=== PATIENT | male | born 1950 | race Caucasian/White ===

== ENCOUNTER 2024-04-13 12:40 | Observation (INO) | payer MEDICARE, SELFPAY ==
[2024-04-13] VITALS (20 sets, daily range): BP systolic 90–157; BP diastolic 50–85; PULSE 70–115; RESP 12–26; TEMP 36.2–37.7; O2SAT 93–99; BMI 20.7
[2024-04-13] MEDS: ONDANSETRON 4 MG/2 ML INJ IV ×2 (13:15→18:53)
--- NOTE | 2024-04-13 13:15 | DI.CT.S_ITS ---
PROCEDURE: CT ABDOMEN PELVIS W CON INDICATIONS: abd pain,vomiting,possible incarterated hernia TECHNIQUE: After the administration of intravenous contrast, axial sections acquired from the lung bases to the pubic symphysis. Coronal and sagittal reformats were performed. For radiation dose reduction, the following was used: automated exposure control, adjustment of mA and/or kV according to patient size. COMPARISON: None. FINDINGS: Image quality: Diagnostic. Lower Chest: Minimal pericardial effusion. ABDOMEN: Liver: Prominent calcification in the posterior right hepatic lobe. Pattern attenuation is present. There is mild appearance of increased attenuation within the region of the falciform ligament possibly related to focal fat sparing. No priors. Gallbladder: No radiopaque gallstones or wall thickening. Biliary ducts: No biliary dilation. Pancreas: No ductal dilation. Spleen: Size is within normal limits. Adrenal Glands: No adrenal nodules. Kidneys and Ureters: No hydronephrosis. No solid mass. No complex renal cystic lesion which requires follow up. Stomach and Bowel: There are dilated fluid-filled loops of small bowel. Transition point appears to be within the left inguinal canal with marked narrowing and proximal obstruction. This is best seen on series 2, image 65. Greatest transverse dimension of fluid-filled bowel loop measures approximately 3.3 cm. Scattered diverticulosis is present without inflammatory change. Peritoneum: No abnormal intraperitoneal fluid. No free air. Ventral Wall: No significant ventral hernia. Abdominal Nodes: No retroperitoneal or mesenteric adenopathy by size criteria. Vessels: Aorta and inferior vena cava are normal in size. PELVIS: Pelvic Organs: Unremarkable. Bladder: No bladder wall thickening, accounting for underdistention. Pelvic Nodes: No enlarged lymph nodes. Miscellaneous: No inguinal hernias are seen. Bones: No aggressive osseous abnormality. IMPRESSION: Partial small bowel obstruction with transition point appearing to be in the left inguinal canal. Hepatic steatosis. Mild appearance of increased density is present anteriorly within the liver suspected to be related to fat sparing. Dictated by: Sara Solorzano M.D. on 04/13/2024 at 14:45 Approved by: Sara Solorzano M.D. on 04/13/2024 at 14:48
[2024-04-13 13:27] LABS: Add Manual Diff / Slide Review NO; Basophils Absolute Auto 100 /uL (0-100); Basophils Percent Auto 0.9 % (0-2); Eosinophils Absolute Auto 0 /uL (0-450); Eosinophils Percent Auto 0.1 % (2-4); Hematocrit 50.8 % (41-53); Hemoglobin 17.5 g/dL (13.5-17.5); Lymphocytes Absolute Auto 2300 /uL (1100-4500); Lymphocytes Percent Auto 14.7 % (25-40); Mean Corpuscular HGB Conc 34.4 % (30-36); Mean Corpuscular Hemoglobin 32.6 PG (26-34); Mean Corpuscular Volume 94.9 fL (80-100); Monocytes Absolute Auto 1300 /uL (0-900); Monocytes Percent Auto 8.5 % (3-14); Neutrophils Absolute Auto 12000 /uL (1500-7000); Neutrophils Percent Auto 75.8 % (50-75); Platelet Count 467 X10^3/uL (150-400); Red Blood Cell Count 5.36 X10^6/uL (4.5-5.9); Red Cell Distribution Width 13.7 % (11.6-14.8); White Blood Cell Count 15.8 X10^3/uL (4.5-11.0)
[2024-04-13 13:29] LABS: Alanine Aminotransferase 17 IU/L (<50); Albumin 4.8 g/dL (3.5-5.0); Albumin Globulin Ratio 1.3 (1.0-2.8); Alkaline Phosphatase 78 U/L (38-126); Aspartate Aminotransferase 27 IU/L (17-59); BUN Creatinine Ratio 31.7 (6-22); Bilirubin Total 0.8 mg/dL (0.2-1.3); Blood Urea Nitrogen 40 mg/dL (9-20); Carbon Dioxide 31 mmol/L (22-32); Chloride 97 mmol/L (98-107); Estimated Glomerular Filt Rate > 60 mL/min (>60); Globulin 3.6 g/dL (1.7-4.1); Glucose 141 mg/dL (80-110); HEMOLYSIS < 15 (0-50); Lipase 105 U/L (23-300); Potassium 5.1 mmol/L (3.4-5.1); Sodium 134 mmol/L (137-145); Total Protein 8.4 g/dL (6.3-8.2)
--- NOTE | 2024-04-13 15:00 | ED.GENADULT ---
HPI - General Adult General Chief complaint: Urogenital-Male Stated complaint: abd pain, knot in side Time Seen by Provider: 04/13/24 13:51 Source: patient Mode of arrival: Wheelchair History of Present Illness HPI narrative: 73-year-old male who is here for evaluation of left lower abdominal discomfort and a lump in this area. He states that a couple days ago he was carrying a heavy object when he noticed the lump present. Has been worsening and becoming more painful since then. Initially had some vomiting but has not having any nausea now. He has not had a bowel movement in several days. He is still passing flatus. No problems urinating. He has never had a hernia in the past. No prior abdominal surgeries. Has not tried anything for the symptoms prior to arrival. Related Data Allergies Allergy/AdvReac Type Severity Reaction Status Date / Time ibuprofen AdvReac Swelling Verified 04/13/24 13:02 of the Eye Review of Systems Constitutional Constitutional: Reports system reviewed and no additional complaints, except as documented Gastrointestinal Gastrointestinal: Reports system reviewed and no additional complaints, except as documented Genitourinary Genitourinary: Reports system reviewed and no additional complaints, except as documented Integumentary/Breasts Skin/Breast: Reports system reviewed and no additional complaints, except as documented Patient History Social History Smoking Status: Current every day smoker Smoking Status: Current every day smoker alcohol intake frequency: 3 or more drinks per day Substance Use Type: marijuana Exam Initial Vital Signs Initial Vital Signs: Vital Signs Temperature 97.2 F L 04/13/24 12:53 Pulse Rate 115 H 04/13/24 12:53 Respiratory Rate 26 H 04/13/24 12:53 Blood Pressure 98/65 04/13/24 12:53 Pulse Oximetry 97 04/13/24 12:53 Oxygen Delivery Method Room Air 04/13/24 12:53 HENMT Head: normal to inspection and normocephalic Resp Effort & Inspection: normal respiratory effort Auscultation: clear to auscultation bilaterally Cardio Rate: regular rate Rhythm: regular rhythm GI Other: Patient has an obvious left-sided inguinal hernia. Testes: normal Skin General: no rashes or lesions noted Neuro General: patient alert, patient awake and moves all extremities Course Orders Ordered: ED Orders 04/13/24 13:10 Complete Blood Count AUTO DIFF Stat Comprehensive Metabolic Panel Stat Lipase Stat 04/13/24 13:15 CT abdomen pelvis w con Stat 04/13/24 16:12 Urine Microscopic Stat Sodium Chloride (Normal Saline 0.9%) 1,000 mls @ 125 mls/hr IV CONT GEORGES Last Admin: 04/13/24 17:40 Dose: 125 mls/hr Documented By: DANDRE Ondansetron HCl (Ondansetron 4 Mg/2 Ml Inj) 4 mg IV NOW PRN PRN Reason: Nausea And Vomiting Last Admin: 04/13/24 13:15 Dose: 4 mg Documented By: VAN Ondansetron HCl (Ondansetron 4 Mg Odt) 4 mg PO NOW PRN PRN Reason: Nausea And Vomiting Discontinued Medications Morphine Sulfate (Morphine 4 Mg/Ml Inj) 4 mg IV NOW ONE Stop: 04/13/24 15:01 Last Admin: 04/13/24 15:13 Dose: 4 mg Documented By: DANDRE Morphine Sulfate (Morphine 4 Mg/Ml Inj) 4 mg IV NOW ONE Stop: 04/13/24 17:46 Last Admin: 04/13/24 17:51 Dose: 4 mg Documented By: DELL Vital Signs Vital signs: Vital Signs - 8 hr 04/13/24 12:53 04/13/24 13:45 04/13/24 14:06 Temperature 97.2 F L Pulse Rate 115 H Respiratory Rate 26 H Blood Pressure 98/65 128/71 149/67 H Pulse Oximetry 97 Oxygen Delivery Method Room Air 04/13/24 14:06 04/13/24 14:30 04/13/24 14:30 Temperature Pulse Rate 70 95 H Respiratory Rate Blood Pressure 153/85 H Pulse Oximetry 97 Oxygen Delivery Method 04/13/24 15:00 04/13/24 15:00 04/13/24 15:30 Temperature Pulse Rate 96 H 90 Respiratory Rate Blood Pressure 137/74 Pulse Oximetry 99 96 Oxygen Delivery Method 04/13/24 15:30 04/13/24 16:00 04/13/24 16:00 Temperature Pulse Rate 80 Respiratory Rate Blood Pressure 157/71 H 140/76 Pulse Oximetry 99 Oxygen Delivery Method 04/13/24 16:30 04/13/24 16:30 04/13/24 17:00 Temperature Pulse Rate 100 H 104 H Respiratory Rate Blood Pressure 147/75 H Pulse Oximetry 95 97 Oxygen Delivery Method Room Air 04/13/24 17:02 04/13/24 17:02 Temperature Pulse Rate 101 H Respiratory Rate Blood Pressure 100/68 Pulse Oximetry 96 Oxygen Delivery Method Medical Decision Making Lab Data Lab results reviewed: Yes I reviewed the patient's lab results. 04/13/24 13:10 04/13/24 13:10 Labs: Lab Results 04/13/24 04/13/24 Range/Units 13:10 16:12 WBC 15.8 H (4.5-11.0) X10^3/uL RBC 5.36 (4.5-5.9) X10^6/uL Hgb 17.5 (13.5-17.5) g/dL Hct 50.8 (41-53) % MCV 94.9 (80-100) fL MCH 32.6 (26-34) PG MCHC 34.4 (30-36) % RDW 13.7 (11.6-14.8) % Plt Count 467 H (150-400) X10^3/uL Neut % (Auto) 75.8 H (50-75) % Lymph % (Auto) 14.7 L (25-40) % [place] % (Auto) 8.5 (3-14) % Eos % (Auto) 0.1 L (2-4) % Baso % (Auto) 0.9 (0-2) % Neut # (Auto) 38365 H (7619-1927) /uL Lymph # (Auto) 2300 (4370-1859) /uL [place] # (Auto) 1300 H (0-900) /uL Eos # (Auto) 0 (0-450) /uL Baso # (Auto) 100 (0-100) /uL Sodium 134 L (137-145) mmol/L Potassium 5.1 (3.4-5.1) mmol/L Chloride 97 L (98-107) mmol/L Carbon Dioxide 31 (22-32) mmol/L BUN 40 H (9-20) mg/dL Creatinine 1.26 H (0.66-1.25) mg/dL Estimated GFR > 60 (>60) mL/min BUN/Creatinine Ratio 31.7 H (6-22) Glucose 141 H (80-110) mg/dL Calcium 10.0 (8.4-10.2) mg/dL Total Bilirubin 0.8 (0.2-1.3) mg/dL AST 27 (17-59) IU/L ALT 17 (<50) IU/L Alkaline Phosphatase 78 (38-126) U/L Total Protein 8.4 H (6.3-8.2) g/dL Albumin 4.8 (3.5-5.0) g/dL Globulin 3.6 (1.7-4.1) g/dL Albumin/Globulin Ratio 1.3 (1.0-2.8) Lipase 105 (23-300) U/L Urine RBC 1-5/hpf (0-5/HPF) Urine WBC 1-5/hpf (0-5/HPF) Ur Squamous Epith Cells 0-1 /hpf (0-5/HPF) Urine Bacteria Occasional (0-1) (None) Hyaline Casts 1-5/lpf (None) Granular Casts 0-1/lpf (None) Ur Culture Indicated? Cult not indicated Vol Urine Centrifuged 10ml (spun) Urine Dip Bedside Urine Glucose Negative Bedside Urine Bilirubin - Negative Bedside Urine Ketone - Negative Urine Specific [place] 1.010 Bedside Urine Occult Blood +/- Bedside Urine pH 5.5 Bedside Urine Protein +/- 15 Bedside Urine Urobilinogen - Negative Bedside Urine Nitrite - Negative Bedside Urine Leukocytes - Negative Esterase Point of care testing: Urine Dip Bedside Urine Glucose Negative Bedside Urine Bilirubin - Negative Bedside Urine Ketone - Negative Urine Specific [place] 1.010 Bedside Urine Occult Blood +/- Bedside Urine pH 5.5 Bedside Urine Protein +/- 15 Bedside Urine Urobilinogen - Negative Bedside Urine Nitrite - Negative Bedside Urine Leukocytes - Negative Esterase Imaging Data CT scan - abdomen/pelvis: Radiologist's Impression: PROCEDURE: CT ABDOMEN PELVIS W CON INDICATIONS: abd pain,vomiting,possible incarterated hernia TECHNIQUE: After the administration of intravenous contrast, axial sections acquired from the lung bases to the pubic symphysis. Coronal and sagittal reformats were performed. For radiation dose reduction, the following was used: automated exposure control, adjustment of mA and/or kV according to patient size. COMPARISON: None. FINDINGS: Image quality: Diagnostic. Lower Chest: Minimal pericardial effusion. ABDOMEN: Liver: Prominent calcification in the posterior right hepatic lobe. Pattern attenuation is present. There is mild appearance of increased attenuation within the region of the falciform ligament possibly related to focal fat sparing. No priors. Gallbladder: No radiopaque gallstones or wall thickening. Biliary ducts: No biliary dilation. Pancreas: No ductal dilation. Spleen: Size is within normal limits. Adrenal Glands: No adrenal nodules. Kidneys and Ureters: No hydronephrosis. No solid mass. No complex renal cystic lesion which requires follow up. Stomach and Bowel: There are dilated fluid-filled loops of small bowel. Transition point appears to be within the left inguinal canal with marked narrowing and proximal obstruction. This is best seen on series 2, image 65. Greatest transverse dimension of fluid-filled bowel loop measures approximately 3.3 cm. Scattered diverticulosis is present without inflammatory change. Peritoneum: No abnormal intraperitoneal fluid. No free air. Ventral Wall: No significant ventral hernia. Abdominal Nodes: No retroperitoneal or mesenteric adenopathy by size criteria. Vessels: Aorta and inferior vena cava are normal in size. PELVIS: Pelvic Organs: Unremarkable. Bladder: No bladder wall thickening, accounting for underdistention. Pelvic Nodes: No enlarged lymph nodes. Miscellaneous: No inguinal hernias are seen. Bones: No aggressive osseous abnormality. IMPRESSION: Partial small bowel obstruction with transition point appearing to be in the left inguinal canal. Hepatic steatosis. Mild appearance of increased density is present anteriorly within the liver suspected to be related to fat sparing. MDM Narrative Medical decision making narrative: Attempted to reduce the inguinal hernia. After pain medication the patient did tolerate it fairly well. He was able to reduce the approximately 50% of the hernia but I was not able to reduce it all the way. He did have some relief of his discomfort. I did discuss the case with Dr. Lynch on-call with General surgery. Plan will be is to admit the patient to surgery for intervention. Discuss this with the patient. He expressed understanding and agreement. Discharge Plan Departure Patient Disposition: Admitted to Surgery Clinical Impression: Incarcerated inguinal hernia Admit Date/Time: 04/13/24 17:28 Admit Provider: Angela Lynch
[2024-04-13] MEDS: MORPHINE 4 MG/ML INJ IV ×2 (15:13→17:51)
[2024-04-13 16:45] LABS: Bacteria Urine Occasional (0-1); Granular Casts Urine 0-1/LPF; Hyaline Casts Urine 1-5/LPF; RBC Urine 1-5/HPF (0-5/HPF); Squamous Epithelial Cell Urine 0-1 /HPF (0-5/HPF); Urine Volume 10mL (spun); WBC Urine 1-5/HPF (0-5/HPF)
[2024-04-13 16:46] LABS: Culture Indicated Urine Cult Not Indicated
[2024-04-13] MEDS: SODIUM CHLORIDE 0.9% 1,000 ML 125 ML IV (17:40)
--- NOTE | 2024-04-13 20:33 | P.HP_ITS ---
History of Present Illness History of Present Illness Date Patient Seen: 04/13/24 Time Patient Seen: 20:33 Chief complaint: abd pain, knot in side Narrative: incarcerated, obstructing left inquinal hernia. Occurred after carrying heavy rocks a couple days ago. Progressive focal tenderness. Pain is sharp and worse when palpated. Only able to partially reduce in ED. [facility] Social History household members: friend(s) Smoking Status: Current every day smoker alcohol intake: current Meds Home Medications and Allergies Home Medications Medication Instructions Recorded Confirmed Type No Known Home Medications 04/13/24 04/13/24 History Allergies Allergy/AdvReac Type Severity Reaction Status Date / Time ibuprofen AdvReac Swelling Verified 04/13/24 13:02 of the Eye Review of Systems Review of Systems ROS: Yes All systems reviewed with the patient and are negative except as otherwise documented Exam Vital Signs (past 8 hours): - 04/13/24 12:53 04/13/24 13:45 04/13/24 14:06 Temperature 97.2 F L Pulse Rate 115 H Respiratory Rate 26 H Blood Pressure 98/65 128/71 149/67 H Pulse Oximetry 97 Oxygen Delivery Method Room Air 04/13/24 14:06 04/13/24 14:30 04/13/24 14:30 Temperature Pulse Rate 70 95 H Respiratory Rate Blood Pressure 153/85 H Pulse Oximetry 97 Oxygen Delivery Method 04/13/24 15:00 04/13/24 15:00 04/13/24 15:30 Temperature Pulse Rate 96 H 90 Respiratory Rate Blood Pressure 137/74 Pulse Oximetry 99 96 Oxygen Delivery Method 04/13/24 15:30 04/13/24 16:00 04/13/24 16:00 Temperature Pulse Rate 80 Respiratory Rate Blood Pressure 157/71 H 140/76 Pulse Oximetry 99 Oxygen Delivery Method 04/13/24 16:30 04/13/24 16:30 04/13/24 17:00 Temperature Pulse Rate 100 H 104 H Respiratory Rate Blood Pressure 147/75 H Pulse Oximetry 95 97 Oxygen Delivery Method Room Air 04/13/24 17:02 04/13/24 17:02 04/13/24 17:30 Temperature Pulse Rate 101 H Respiratory Rate Blood Pressure 100/68 90/50 L Pulse Oximetry 96 Oxygen Delivery Method 04/13/24 17:30 04/13/24 17:37 04/13/24 17:37 Temperature Pulse Rate 84 98 H Respiratory Rate Blood Pressure 97/54 L Pulse Oximetry 98 96 Oxygen Delivery Method 04/13/24 18:05 04/13/24 18:45 Temperature 98.3 F Pulse Rate 82 Respiratory Rate 16 Blood Pressure 90/50 L Pulse Oximetry 96 Oxygen Delivery Method Room Air Oxygen Delivery Method Room Air Const General: cooperative Nutritional Appearance: thin Orientation: alert, awake and oriented x3 [facility] Head: normocephalic and atraumatic Eyes General: appearance normal, both eyes and all related structures Sclera: sclerae normal Neck Neck: trachea midline Resp Effort & Inspection: normal respiratory effort and able to speak in complete sentences Cardio Rate: regular rate Rhythm: regular rhythm GI Inspection: normal to inspection Palpation: soft Other: bilateral inguinal hernias with the left one tender and not completely reduciable. Skin General: atrophy Hair: general thinning Neuro General: patient alert, patient awake and patient oriented x3 Cognition: normal cognition Psych Mental Status: mental status grossly normal Affect: normal affect Judgment: judgment good Objective Labs 04/13/24 13:10 04/13/24 13:10 Labs: Laboratory Results - last 24 hr 04/13/24 04/13/24 13:10 16:12 WBC 15.8 H RBC 5.36 Hgb 17.5 Hct 50.8 MCV 94.9 MCH 32.6 MCHC 34.4 RDW 13.7 Plt Count 467 H Neut % (Auto) 75.8 H Lymph % (Auto) 14.7 L [place] % (Auto) 8.5 Eos % (Auto) 0.1 L Baso % (Auto) 0.9 Neut # (Auto) 41293 H Lymph # (Auto) 2300 [place] # (Auto) 1300 H Eos # (Auto) 0 Baso # (Auto) 100 Sodium 134 L Potassium 5.1 Chloride 97 L Carbon Dioxide 31 BUN 40 H Creatinine 1.26 H Estimated GFR > 60 BUN/Creatinine Ratio 31.7 H Glucose 141 H Calcium 10.0 Total Bilirubin 0.8 AST 27 ALT 17 Alkaline Phosphatase 78 Total Protein 8.4 H Albumin 4.8 Globulin 3.6 Albumin/Globulin Ratio 1.3 Lipase 105 Urine RBC 1-5/hpf Urine WBC 1-5/hpf Ur Squamous Epith Cells 0-1 /hpf Urine Bacteria Occasional (0-1) Hyaline Casts 1-5/lpf Granular Casts 0-1/lpf Ur Culture Indicated? Cult not indicated Vol Urine Centrifuged 10ml (spun) Assessment & Plan Assessment & Plan narrative: incarcerated, obstructing inquinal hernia on the left. reducible hernia on the right. Plan: Urgent repair of LIH with mesh COVID-19 COVID-19 status: Negative Time Spent With Patient Time with patient: less than 30 minutes Quality VTE Deep Vein Thrombosis/Pulmonary Embolism Present on Admission: No
[2024-04-13] MEDS: CEFAZOLIN 2 GM/100 ML PREMIX 100 ML IV (21:10)
--- NOTE | 2024-04-13 21:20 | SUR.OPER ---
Supine on padded OR bed, head on pillow, arms secured on padded arm boards at <90 degrees abduction, legs uncrossed, safety belt at thigh, tape over blanket over lower legs.
[2024-04-13] MEDS: BUPIVACAINE 0.25% (PF) 30 ML, EPINEPHrine 0.15 MG INJ (21:27)
--- NOTE | 2024-04-13 22:09 | P.OP_ITS ---
Operative Date/Time/Diagnoses Date of procedure: 04/13/24 Time of procedure: 22:09 Pre-op diagnosis: Incarcerated left inguinal hernia Post-op diagnosis: same Procedure & Clinicians Procedure: Repair of left inguinal hernia with mesh Same procedure as scheduled: Yes Indications: Incarcerated left inguinal hernia, evidence of obstruction Surgeon: Angela Lynch Anesthesia Type: General and Local Operative Notes Findings: Indirect left inguinal hernia incarcerated with a slight ischemia of the contents of the hernia. Closure Type: primary Specimen(s): none sent Applied: implant(s) (Small size Bard plug mesh) Estimated Blood Loss (mL): 10 Blood products transfused: none Procedure in detail: Preop diagnosis: Left inguinal hernia, incarcerated. Postop diagnosis: Same Operative procedure: Repair of left inguinal hernia with mesh Surgeon: Maryuri Lynch MD Findings: An incarcerated indirect left inguinal hernia with evidence of ischemia Procedure: Patient placed in a supine position. Prepped and draped sterile fashion to expose his abdomen. Transverse incision created over the visible incarcerated hernia. Sharp and blunt dissection allowed me to reveal the top of the hernia and dissect predominantly bluntly down to its base. It was difficult to reduce even with paralytic. I then open the internal hernia ring slightly on 2 areas to reduce the hernia with comfort. He also had a cord lipoma which was removed electrocautery and good hemostasis. Cord structures were preserved with retraction using a Maryanne drain. A small Bard plug mesh was used for repair of the defect. Internal petals were sutured to surrounding tissue to stent the mesh even further. And surrounding tissue was closed over the top using interrupted 2-0 Ethibond. Closure consisted of reapproximation of the Carol's fascia as the internal ob lique fascia was not visible. Skin was closed with running 4-0 Vicryl. Steri- Strips and sterile dressings were placed. Patient was awakened, extubated, taken to recovery room in stable condition. Needle, instrument, sponge counts were correct. Blood loss: 10 mL Specimen: None Complications: none Post-operative Condition: stable Disposition: PACU
[2024-04-13] MEDS: ACETAMINOPHEN 325 MG TABLET 650 MG PO (22:41)
[2024-04-13] MEDS: LACTATED RINGERS 1,000 ML 42 ML IV (22:43)
[2024-04-14 00:55] VITALS: BP 112/55; PULSE 75; RESP 17; TEMP 36.3; O2SAT 95
[2024-04-14 05:37] VITALS: BP 152/70; PULSE 81; RESP 17; TEMP 35.9; O2SAT 96
--- NOTE | 2024-04-14 13:31 | PC.NURSE ---
Addendum entered by Janelle Ozuna R.N. 04/14/24 13:41: Reviewed d/c packet, questions answered. Pt d/c to home via auto w/family. Original Note: Pending discharge: Pt feels ready to d/c to home. Dr. King has been by and given pt d/c instructions. Pt denies nausea and tolerated diet w/out problems. Vds w/out diff. Denies need for pain med. He reports the pain was so bad yesterday it is nothing today. There is a sm spot of drainage and intact for dressing. Family is coming to pick pt up.
--- NOTE | 2024-04-14 14:04 | CM.DANOTE ---
Brief DCP Assessment Note pt is a 73yo M here following hernia repair with Dr. Lynch. PCP None listed Payer Medicare and self pay [employer] reviewed EMR. [place] here from [place] of town. Pt reported to have got hernia after lifting heavy rocks. 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 pt reported to CC Cherelle when she was delivering [employer] form that he had family that took good care of [him]. Pt left prior to being seen by this [employer]. P: dc home today no CM needs. CM team will follow as needed. [facility] Discharge Planning/Care Management CM Discharge Assessment Start: 04/14/24 14:03 Freq: Status: Active Protocol: Document 04/14/24 14:03 (Rec: 04/14/24 14:04 [id number]) Discharge Planning Assessment Assigned [facility] DPOA/Assigned Designee Name analilia Huntley Contact Information [phone] Advance Directives? No History Provided By Medical Record Prior Living Arrangements House Household Members friend(s) Independent with ADL's Yes Is patient alert and oriented? Yes Barriers to Discharge No Discharge Plan Home Referrals Initiated None needed Whiteboard Updated in Patient Room with No name and ext. # of [facility] Review Status In Process Please Provide Date Initial DC 04/14/24 Assessment Was Performed Next Review Type Continued Stay Review
== END 2024-04-14 13:35 | disposition home or self-care (01) ==
LOC: ED 17:23 → AC 17:38
PROVIDERS: Admitting Provider Surgery; Emergency Provider Emergency Medicine; Referring Provider Emergency Medicine; Visit Provider Surgery
PROC: (CPT 49507; principal; 2024-04-13 20:30)
DX: K40.30 Unilateral inguinal hernia, with obstruction, without gangrene, not specified as recurrent (principal)
CPT/HCPCS: 49507; 36415; 74177; 80053; 81003; 81015; 83690; 85025; 96374; 96375; 96376; 99222; 99284; G0378; J0171; J0330; J0690; J1100; J2250; J2270; J2405; J2704; J3010; Q9967